=== PATIENT | male | born 1965 | race Caucasian/White ===

== ENCOUNTER 2021-05-27 18:10 | Emergency (ER) | payer BC, OTHER ==
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
[2021-05-27 18:20] VITALS: O2SAT 94
[2021-05-27] MEDS ORDERED: Adacel Vial IM ONE ×2 (19:12→19:18)
[2021-05-27 19:28] VITALS: BP 150/91; PULSE 85
== END 2021-05-27 19:30 | disposition home or self-care (01) ==
LOC: ED 18:10
DX: S01.511A Laceration without foreign body of lip, initial encounter (principal); Y04.0XXA Assault by unarmed brawl or fight, initial encounter; J44.9 Chronic obstructive pulmonary disease, unspecified; I10 Essential (primary) hypertension; Z79.899 Other long term (current) drug therapy
CPT/HCPCS: 12051; 90471; 90715; 99283